=== PATIENT | male | born 1950 | race Caucasian/White ===

== ENCOUNTER 2018-09-24 13:55 | Inpatient (IN) ==
[2018-09-24] MEDS ORDERED: Sod Chloride 0.9% Inj 1,000 ML IV.SIG ONE (14:29)
--- NOTE | 2018-09-24 14:43 | ED ---
HPI General Chief Complaint: Psychiatric Symptoms Stated Complaint: Psych Eval Time Seen by Provider: 09/24/18 14:15 Source: patient Mode of arrival: other (GANGA) Limitations: no limitations History of Present Illness HPI Narrative: 68-year-old male presents the ED under Jaffe act for psychiatric evaluation. According to the Jaffe act the patient told the GANGA that he was "FUBAR" and just did not want to be here anymore. On presentation the patient endorses feeling hopeless and suicidal. He denies a specific plan. He endorses multiple stressors including the recent inability to procure his normal pain medication of Sartell. He states that he is currently living in a motel. He denies any somatic complaints. He is a lifelong smoker since early teen years. He endorses recently beginning to drink alcohol "to help with my pain." He states that prior to this he had been sober for 5 years. Related Data Home Medications Medication Instructions Recorded Confirmed No Known Home Medications 09/24/18 09/24/18 Allergies Allergy/AdvReac Type Severity Reaction Status Date / Time No Known Allergies Allergy Unverified 09/24/18 14:17 Review of Systems ROS: all other systems reviewed are negative PMFSH Social History Social History Substance History: Active Abuse Second Hand Smoke Exposure: Yes Smoking Status: Current every day smoker Tobacco Type: Cigarettes How Often Do You Have a Drink Containing Alcohol: 4 or more times a week Recent Travel in [facility] within the Last 8 Weeks: No Recent Out of Country Travel within the Last 8 Weeks: No Substance Abuse Detail Alcohol: Substance Use Status: Active Route Used Substance Abuse: By Mouth Substance Frequency: heavy weekly use Immunization History Tetanus Immunization: Unsure Exam Narrative Exam Narrative: GENERAL: Well-nourished, well-developed white male in no acute distress. SKIN: Focused skin assessment warm/dry. HEAD: Atraumatic. Normocephalic. EYES: Pupils equal and round. No scleral icterus. No injection or drainage. ENT: No nasal bleeding or discharge. Mucous membranes pink and dry. NECK: Trachea midline. No JVD. CARDIOVASCULAR: Regular rate and rhythm. No murmur appreciated. RESPIRATORY: No accessory muscle use. Clear to auscultation. Breath sounds equal bilaterally. GASTROINTESTINAL: Abdomen soft, non-tender, nondistended. Hepatic and splenic margins not palpable. MUSCULOSKELETAL: No obvious deformities. No clubbing. No cyanosis. No edema. NEUROLOGICAL: Awake and alert. No obvious cranial nerve deficits. Motor grossly within normal limits. Normal speech. PSYCHIATRIC: Tearful, anxious, combative at times. Course Initial Documented Vital Signs Temperature 98.5 F 09/24/18 13:58 Pulse Rate 107 H 09/24/18 13:58 Respiratory Rate 20 09/24/18 13:58 Blood Pressure 137/81 09/24/18 13:58 Pulse Oximetry 98 09/24/18 13:58 Last Documented Vital Signs Temperature 98.5 F 09/24/18 13:58 Pulse Rate 92 H 09/24/18 16:34 Respiratory Rate 14 09/24/18 16:34 Blood Pressure 100/70 09/24/18 16:34 Pulse Oximetry 99 09/24/18 16:34 Medical Decision Making MDM Narrative Medical decision making narrative: 68-year-old male presents to the ED under Jaffe act for psychiatric evaluation. The patient made some suicidal statements to his brother. He acknowledges making the statements but denies suicidal ideation. The vitals are reviewed. Physical exam is unremarkable. Patient was administered IV Ativan. On recheck the patient has been attempting to leave the room, removing the medical equipment. He was administered an additional 1 mg of Ativan and 5 mg Haldol. On recheck the patient is sleeping. CBC and CMP without acute findings. EKG without acute findings. Troponin negative x1. Alcohol level 355. The patient was placed on Sewall protocol. He is medically cleared and awaiting psychiatric evaluation. Medical Screen Exam Complete: Yes Emergency Medical Condition: Yes Differential Diagnosis Differential Diagnosis: Adjustment disorder versus anxiety versus bipolar versus depression versus dementia versus mood disorder versus PTSD versus schizophrenia versus schizoaffective disorder versus substance-induced mood disorder versus other Lab Data Result diagrams: 09/24/18 14:37 09/24/18 14:37 Lab Results 09/24/18 09/24/18 09/24/18 Range/Units 14:37 14:37 14:37 WBC 5.9 (4.0-11.0) th/mm3 RBC 5.46 (4.50-5.90) mil/mm3 Hgb 18.3 H (13.0-17.0) gm/dL Hct 51.9 H (39.0-51.0) % MCV 95.1 (80.0-100.0) fL MCH 33.6 (27.0-34.0) pg MCHC 35.3 (32.0-36.0) % RDW 16.7 (11.6-17.2) % Plt Count 250 (150-450) th/mm3 MPV 7.6 (7.0-11.0) fL Neut % (Auto) 47.7 (16.0-70.0) % Lymph % (Auto) 40.1 (9.0-44.0) % [place] % (Auto) 9.4 H (0.0-8.0) % Eos % (Auto) 1.0 (0.0-4.0) % Baso % (Auto) 1.8 (0.0-2.0) % Neut # (Auto) 2.8 (1.8-7.7) th/mm3 Lymph # (Auto) 2.4 (1.0-4.8) th/mm3 [place] # (Auto) 0.6 (0.0-0.9) th/mm3 Eos # (Auto) 0.1 (0.0-0.4) th/mm3 Baso # (Auto) 0.1 (0.0-0.2) th/mm3 WBC Differential . Differential Comment Auto diff final Sodium 144 (136-145) meq/L Potassium 5.2 H (3.5-5.1) meq/L Chloride 110 H (98-107) meq/L Carbon Dioxide 28.9 (21.0-32.0) meq/L Anion Gap 5 (5-15) meq/L BUN 9 (7-18) mg/dL Creatinine 1.29 (0.60-1.30) mg/dL Estimated GFR 55 L (>89) mL/min Random Glucose 92 (74-106) mg/dL Calcium 7.9 L (8.5-10.1) mg/dL Magnesium 2.4 (1.5-2.5) mg/dL Total Bilirubin 0.9 (0.2-1.0) mg/dL AST 57 H (15-37) U/L ALT 50 (12-78) U/L Alkaline Phosphatase 107 (45-117) U/L Troponin I Less than 0.02 L (0.02-0.05) ng/mL Total Protein 7.0 (6.4-8.2) g/dL Albumin 3.7 (3.4-5.0) g/dL TSH 0.508 (0.358-3.740) uIU/mL Serum Alcohol 355 H (0-5) mg/dL Imaging Data Radiologist's impression: Chest X-Ray 09/24/18 15:21 CONCLUSION: No acute intrathoracic disease. ECG Data EKG Prior to Arrival: No Attestation: I personally reviewed and interpreted this ECG as follows: Interpretation: Rate 94, sinus rhythm. VA interval 149, QRS 90, QTc 417 ms. Normal axis. No acute ST changes. Reviewed by Dr. Rivers. Discharge Plan Discharge Disposition Patient Disposition: Sign Out(ED Internal Use Only) Physicians Team ED Provider: Joy Rivers ED Midlevel Provider: Lisa Malhotra Primary Care Provider: UNKNOWN, Rxs /Orders / Referrals /Forms Prescriptions: No Action No Known Home Medications RF: 0 Discharge Interventions Interventions: Vital Signs Last Done: 09/24/18 16:34 Status ED Status: Medically Cleared
[2018-09-24 15:02] LABS: Baso # (Auto) 0.1 th/mm3 (0.0-0.2); Baso % (Auto) 1.8 % (0.0-2.0); Eos # (Auto) 0.1 th/mm3 (0.0-0.4); Hematocrit 51.9 % (39.0-51.0); Hemoglobin 18.3 gm/dL (13.0-17.0); Lymph # (Auto) 2.4 th/mm3 (1.0-4.8); Lymph % (Auto) 40.1 % (9.0-44.0); Mean Corpuscular HGB Conc 35.3 % (32.0-36.0); Mean Corpuscular Hemoglobin 33.6 pg (27.0-34.0); Mean Corpuscular Volume 95.1 fL (80.0-100.0); Mean Platelet Volume 7.6 fL (7.0-11.0); Mono # (Auto) 0.6 th/mm3 (0.0-0.9); Mono % (Auto) 9.4 % (0.0-8.0); Neut # (Auto) 2.8 th/mm3 (1.8-7.7); Neut % (Auto) 47.7 % (16.0-70.0); Platelet Count 250 th/mm3 (150-450); Red Blood Count 5.46 mil/mm3 (4.50-5.90); Red Cell Distribution Width 16.7 % (11.6-17.2); White Blood Count 5.9 th/mm3 (4.0-11.0)
[2018-09-24] MEDS ORDERED: Haloperidol Inj 5 MG/ML Ampul IV.PUSH ONE (15:21)
[2018-09-24 15:46] LABS: Alanine Aminotransferase 50 U/L (12-78); Albumin 3.7 g/dL (3.4-5.0); Alkaline Phosphatase 107 U/L (45-117); Anion Gap 5 meq/L (5-15); Aspartate Aminotransferase 57 U/L (15-37); Blood Urea Nitrogen 9 mg/dL (7-18); Calcium 7.9 mg/dL (8.5-10.1); Carbon Dioxide 28.9 meq/L (21.0-32.0); Chloride 110 meq/L (98-107); Glomerular Filtration Rate 55 mL/min (>89); Glucose,Random 92 mg/dL (74-106); Magnesium 2.4 mg/dL (1.5-2.5); Potassium 5.2 meq/L (3.5-5.1); Sodium 144 meq/L (136-145); Thyroid Stimulating Hormone 0.508 uIU/mL (0.358-3.740)
[2018-09-24 15:53] LABS: Alcohol 355 mg/dL (0-5)
--- NOTE | 2018-09-24 16:19 | XR ---
EXAM DATE: 09/24/2018 4:16 PM EST AGE/SEX: 68 years / Male INDICATIONS: Shortness of breath. CLINICAL DATA: This is the patient's initial encounter. Patient reports that signs and symptoms have been present for 1 day and indicates a pain score of Nonresponsive. MEDICAL/SURGICAL HISTORY: Non-responsive. Non-responsive. COMPARISON: No prior exams available for comparison. FINDINGS: A single AP view of the chest demonstrates the lungs to be symmetrically aerated without evidence of mass, infiltrate or effusion. The cardiomediastinal contours are unremarkable. Osseous structures a re intact. There are some old healed bilateral rib fractures. CONCLUSION: No acute intrathoracic disease. Electronically signed by: Stevenson Matute MD Board Certified Radiologist 09/24/2018 4:18 PM EST
[2018-09-24] MEDS ORDERED: Haloperidol Inj 5 MG/ML Ampul IV.PUSH PRN (17:13)
[2018-09-25] MEDS: LORazepam 1 MG Tablet PO PRN ×4 (04:02→21:32)
[2018-09-25] MEDS ORDERED: Naproxen 500 MG Tablet PO ONE (07:39)
[2018-09-25 08:42] LABS: Amphetamine Screen,Urine Neg (Neg); Barbiturate Screen,Urine Neg (Neg); Cannabinoid Screen,Urine Neg (Neg); Cocaine Screen,Urine Neg (Neg)
[2018-09-25 08:48] LABS: Opiate Screen,Urine Neg (Neg)
[2018-09-25] MEDS ORDERED: Aluminum/Magnesium/Simethacone Susp 30 ML UDC PO PRN (09:37)
--- NOTE | 2018-09-25 10:05 | ED ---
HPI - Psych - General Source: patient Mode of arrival: other (GANGA) Limitations: no limitations - History of Present Illness MD complaint: feels depressed Onset (ago): week(s) Duration: constant History of same: No Relieving factors: none Exacerbating factors: alcohol Context: recent alcohol abuse Associated psychiatric symptoms: depression Associated symptoms: denies other symptoms Treatments prior to arrival: none If self harm: admits thoughts of self harm (while intoxicated, currently denying ) - General Chief Complaint: Psychiatric Symptoms Stated Complaint: Psych Eval Time Seen by Provider: 09/24/18 14:15 - History of Present Illness HPI Narrative: This is a 68-year-old single, male who presents to this facility under a police-initiated Jaffe Act for making suicidal statements. Patient is not previously known to this facility. Reviewed electronic medical record, labs, and discussed case with staff. Blood alcohol level was .355 upon his arrival. He is evaluated in his room in [facility]. Found awake, alert and oriented X 4. His speech is clear, logical, organized, of normal noemi and volume. He is currently denying SI and HI. When asked if he is experiencing AVH he states, "not really". There is no indication of psychosis or sid. I can elicit no delusional material. The patient does admit to feeling depressed and his affect is sad. He reports that he recently had a friend that . Patient states that he has chronic pain from past injuries and was prescribed pain medication however, "due to the law they stopped prescribing me them, so I started drinking again". He reports that he has been drinking daily for three weeks, approximately 12 "high octane beers per day". 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 He admits to owning firearms. Denies any previous suicide attempts. Denies familial history. Denies previous seizures during w/d. He smokes approximately one PPD of cigarettes and denies using illicit drugs. He does not desire detox at this time. He reports that he went to one "for about a minute, I decided it wasn't for me". (Ryanne Smith) - Related Data Home Medications Medication Instructions Recorded Confirmed No Known Home Medications 12/13/18 12/13/18 Allergies Allergy/AdvReac Type Severity Reaction Status Date / Time No Known Allergies Allergy Unverified 09/24/18 14:17 Review of Systems Respiratory: Reports other (COPD tachypneic had to recieve a breathing treatment ) PMFSH - History History Provided By: Patient - Tobacco History Second Hand Smoke Exposure: Yes Tobacco Use In Past 30 Days: Yes Smoking Status: Current every day smoker Tobacco Type: Cigarettes - Alcohol History How Often Do You Have a Drink Containing Alcohol: 4 or more times a week - Substance Use History Substance History: Active Abuse - Substance Use Type Alcohol Status: Active Route Used: By Mouth Frequency: heavy weekly use - Travel History Recent Travel in the [place] Within the Last 8 Weeks: No Recent Travel Out of the Country Within the Last 8 Weeks: No - Immunization History Tetanus Immunization: Unsure Psychiatric History - Psychiatric History Psychiatric Treatment History: Denies Previous Treatment History of Inpatient Treatment: No Firearms in Home: Yes - Family Psychiatric History Denies (Ryanne Smith) Physical Exam - General Limitations: no limitations General appearance: alert - Head Head exam: atraumatic, normocephalic - Psychiatric Psychiatric exam: Present: depressed Mental Status Examination Appearance: Disheveled Consciousness: Alert Orientation: x4 Motor Activity: Other (lying on bed) Speech: Unremarkable Language: Adequate Fund of Knowledge: Adequate Attention and Concentration: Adequate Memory: Unremarkable Mood: Sad Affect: Sad Thought Process & Associations: Intact Thought Content: Appropriate Hallucination Type: None Delusion Type: None Suicidal Ideation: No Suicidal Plan: No Suicidal Intention: No Homicidal Ideation: No Homicidal Plan: No Homicidal Intention: No Insight: Fair Judgment: Impulsive Initial Documented Vital Signs Temperature 98.5 F 09/24/18 13:58 Pulse Rate 107 H 09/24/18 13:58 Respiratory Rate 20 09/24/18 13:58 Blood Pressure 137/81 09/24/18 13:58 Pulse Oximetry 98 09/24/18 13:58 Last Documented Vital Signs Temperature 98.3 F 09/25/18 06:09 Pulse Rate 66 09/25/18 07:38 Respiratory Rate 22 09/25/18 07:38 Blood Pressure 169/103 H 09/25/18 07:26 Pulse Oximetry 96 09/25/18 07:25 MDM - Psych - Diagnosis (1) Major depressive disorder Code(s): F32.9 - Major depressive disorder, single episode, unspecified Status : Acute - Lab Data Result diagrams: 09/24/18 14:37 09/24/18 14:37 - MDM Narrative Medical decision making narrative: Given that the patient has had a recent loss of a good friend, endorses being depressed, and reported feeling suicidal while intoxicated, he will be admitted to a locked psychiatric unit for further evaluation and treatment as deemed necessary. (Ryanne Smith) - Lab Data Lab Results 09/24/18 09/24/18 09/24/18 Range/Units 14:37 14:37 14:37 WBC 5.9 (4.0-11.0) th/mm3 RBC 5.46 (4.50-5.90) mil/mm3 Hgb 18.3 H (13.0-17.0) gm/dL Hct 51.9 H (39.0-51.0) % MCV 95.1 (80.0-100.0) fL MCH 33.6 (27.0-34.0) pg MCHC 35.3 (32.0-36.0) % RDW 16.7 (11.6-17.2) % Plt Count 250 (150-450) th/mm3 MPV 7.6 (7.0-11.0) fL Neut % (Auto) 47.7 (16.0-70.0) % Lymph % (Auto) 40.1 (9.0-44.0) % [place] % (Auto) 9.4 H (0.0-8.0) % Eos % (Auto) 1.0 (0.0-4.0) % Baso % (Auto) 1.8 (0.0-2.0) % Neut # (Auto) 2.8 (1.8-7.7) th/mm3 Lymph # (Auto) 2.4 (1.0-4.8) th/mm3 [place] # (Auto) 0.6 (0.0-0.9) th/mm3 Eos # (Auto) 0.1 (0.0-0.4) th/mm3 Baso # (Auto) 0.1 (0.0-0.2) th/mm3 WBC Differential . Differential Comment Auto diff final Sodium 144 (136-145) meq/L Potassium 5.2 H (3.5-5.1) meq/L Chloride 110 H (98-107) meq/L Carbon Dioxide 28.9 (21.0-32.0) meq/L Anion Gap 5 (5-15) meq/L BUN 9 (7-18) mg/dL Creatinine 1.29 (0.60-1.30) mg/dL Estimated GFR 55 L (>89) mL/min Random Glucose 92 (74-106) mg/dL Calcium 7.9 L (8.5-10.1) mg/dL Magnesium 2.4 (1.5-2.5) mg/dL Total Bilirubin 0.9 (0.2-1.0) mg/dL AST 57 H (15-37) U/L ALT 50 (12-78) U/L Alkaline Phosphatase 107 (45-117) U/L Troponin I Less than 0.02 L (0.02-0.05) ng/mL Total Protein 7.0 (6.4-8.2) g/dL Albumin 3.7 (3.4-5.0) g/dL TSH 0.508 (0.358-3.740) uIU/mL Urine Opiates Screen (Neg) Ur Barbiturates Screen (Neg) Ur Amphetamines Screen (Neg) U Benzodiazepines Scrn (Neg) Urine Cocaine Screen (Neg) U Cannabinoids Screen (Neg) Serum Alcohol 355 H (0-5) mg/dL 09/25/18 Range/Units 08:10 WBC (4.0-11.0) th/mm3 RBC (4.50-5.90) mil/mm3 Hgb (13.0-17.0) gm/dL Hct (39.0-51.0) % MCV (80.0-100.0) fL MCH (27.0-34.0) pg MCHC (32.0-36.0) % RDW (11.6-17.2) % Plt Count (150-450) th/mm3 MPV (7.0-11.0) fL Neut % (Auto) (16.0-70.0) % Lymph % (Auto) (9.0-44.0) % [place] % (Auto) (0.0-8.0) % Eos % (Auto) (0.0-4.0) % Baso % (Auto) (0.0-2.0) % Neut # (Auto) (1.8-7.7) th/mm3 Lymph # (Auto) (1.0-4.8) th/mm3 [place] # (Auto) (0.0-0.9) th/mm3 Eos # (Auto) (0.0-0.4) th/mm3 Baso # (Auto) (0.0-0.2) th/mm3 WBC Differential Differential Comment Sodium (136-145) meq/L Potassium (3.5-5.1) meq/L Chloride (98-107) meq/L Carbon Dioxide (21.0-32.0) meq/L Anion Gap (5-15) meq/L BUN (7-18) mg/dL Creatinine (0.60-1.30) mg/dL Estimated GFR (>89) mL/min Random Glucose (74-106) mg/dL Calcium (8.5-10.1) mg/dL Magnesium (1.5-2.5) mg/dL Total Bilirubin (0.2-1.0) mg/dL AST (15-37) U/L ALT (12-78) U/L Alkaline Phosphatase (45-117) U/L Troponin I (0.02-0.05) ng/mL Total Protein (6.4-8.2) g/dL Albumin (3.4-5.0) g/dL TSH (0.358-3.740) uIU/mL Urine Opiates Screen Neg (Neg) Ur Barbiturates Screen Neg (Neg) Ur Amphetamines Screen Neg (Neg) U Benzodiazepines Scrn Neg (Neg) Urine Cocaine Screen Neg (Neg) U Cannabinoids Screen Neg (Neg) Serum Alcohol (0-5) mg/dL
--- NOTE | 2018-09-25 10:52 | ECG ---
Date Performed: 09/24/2018 Time Performed: 16:31:40 PTAGE: 68 years EKG: Sinus rhythm WITH SINUS ARRHYTHMIA POSSIBLE RIGHT VENTRICULAR CONDUCTION DELAY BORDERLINE ECG NO PREVIOUS TRACING DOCTOR: Khoa Jones Interpretating Date/Time 09/25/2018 10:50:58
[2018-09-25] MEDS: Umeclindinium 62.5 MCG/Vilanterol 25 MCG Inhaler INH SCH (11:17)
--- NOTE | 2018-09-25 13:46 | P.DIET ---
Nutritional Evaluation Type of nutrition evaluation: initial Nutrition consult regarding: Diet Evaluation Nutrition screening: [facility] ([facility] consult for weight loss) Objective - Diagnosis depression - Indications of Malnutrition Characteristics: Weight loss - Objective Body Mass Index: 19.9 [place] body weight: 73 kg % IBW: 84 Body Weight Used for Calculations: IBW, Actual Energy Needs - Lower Range (kCal/kg): 30 Energy Needs - Upper Range (kCal/kg): 35 Lower Limit kCal/kg (kCals): 1,830 Upper Limit kCal/kg (kCals): 2,135 Lower Limit Protein Factor (Grams per Kg): 1 Upper Limit Protein Factor (Grams per Kg): 1.2 Lower Protein Needs (Protein): 61 Upper Protein Needs (Protein): 73 Fluid Factor (ml/kg): 30 Estimated Fluid Needs (ml): 1,830 Dietitian Reviewed in Medical Record: Current diet, Curent medications, Labs, Medical history Diet Order: Regular Objective Comments: PMH; psychiatric symptoms Labs; nutritionally unremarkable Medications; reviewed Assessment Assessment: [facility] consult for weight loss. Pt is at nutritional risk 2/2 recent weight loss, ETOH use and depression. Will recommend Ensure nutritional supplement BID to provide an additional 250kcal and 9g protein in efforts to minimize further weight loss. Additionally, would recommend to consider MVI 2/2 ETOH use. Will continue to monitor PO intake and acceptance/tolerance to supplements. Recommendations: 1. Ensure supplement BID 2. Consider MVI 3. Monitor PO intake and tolerance to supplements 4. Monitor weight Dietitian to Monitor: Lab values, Supplement acceptance, PO Intake
--- NOTE | 2018-09-25 14:18 | P.HPPSY ---
Provisional Diagnosis Admission Date: September 25, 2018 09:22 [place] I.: Major depressive disorder single episode severe without psychotic features Alcohol use disorder severe [place] III.: Chronic pain COPD Competence Certification of Person's Competence To Provide Express and Informed Consent I have personally examined Sathya Fonseca, a person being served at [facility] on, September 25, 2018 1400. Express and informed consent means consent voluntarily given in writing, by a competent person, after sufficient explanation and disclosure of the subject matter involved to enable the person to make a knowing and willful decision without any element of force, fraud, deceit, duress, or other form of constraint or coercion. This person is 18 years of age or older, is not now known to be incompetent to consent to treatment with a guardian advocate, and does not have a health care surrogate or proxy currently making medical treatment decisions. I have found this person to be one of the following: [] Competent to provide express and informed consent, as defined above, for voluntary admission to this facility and is competent to provide express and informed consent for treatment. He/she has the consistent capacity to make well reasoned, willful, and knowing decisions concerning his or her medical or mental health treatment. The person fully and consistently understands the purpose of the admission for examination/placement and is fully capable of personally exercising all rights assured [place] [] Incompetent to provide express and informed consent to voluntary admission, and this is incompetent to provide express and informed consent to treatment. The person must be transferred to involuntary status and a petition for a guardian advocate filed with the Circuit Court. [xxx] Refusing to provide express and informed consent to voluntary admission but is competent to provide express and informed consent for treatment. The person must be discharged or transferred to involuntary status. Form shall be completed within 24 hours of a person's arrival at the receiving facility and filed in the clinical record of each person: 1. Admitted on a voluntary basis 2. Permitted to provide express and informed consent to his/her own treatment 3. Allowed to transfer from involuntary to voluntary status 4. Prior to permitting a person to consent to his or her own treatment after having been previously found incompetent to consent to treatment. History of Present Illness Capacity: Has capacity Chief Complaint: Depression with suicidal threats History of Present Illness: The patient is a 68-year-old male who is brought to the emergency room under law enforcement officers Jaffe act order. According to the Jaffe act report, the patient told the business lawyer that he was "FUBAR" and did not want to be here anymore. On presentation to the emergency room, the patient admits to being hopeless and ambivalent about living but denies a plan to end his life. He endorsed multiple stressors including chronic pain without satisfactory treatment since he lost access to his [employer] approximately 3-4 months ago. Additionally, the patient reports grief and loss from losing a friend to stomach cancer 2 months ago. He admits to worsening depressed mood over the last 2 months but on the day of admission he reports "I was talking crazy and my brother took it the wrong way I do not want to ...the thought really scares me." As for his depression, the patient denies consistently depressed mood for more than 2 weeks prior to 2 months ago but since his friend 2 months ago he has been feeling down and depressed daily. He also admits to "fitful sleep", decreased interest, increased feelings of hopelessness, decreased energy, decreased concentration, and decreased appetite. He denies having thoughts of suicide previous to the day of admission. As for anxiety symptoms, the patient denies any history of chronic worries or anxiety attacks. As for psychosis, the patient denies any history of auditory or visual hallucinations. He denies any history of paranoid delusions. Past psychiatric history: Past Diagnoses: None reported Hospitalizations: Patient admits to being Jaffe acted 10 years ago reportedly for answering yes on a suicide screener. He reports being discharged the next day. Suicidal behavior: He denies Past psychotropic medication trials: Denies Outpatient treatment: Denies Substance Use Treatment: Denies Abuse/assault history: Denies Family psychiatric history: He denies any history of mental illness or suicides in his family. Psychosocial history: He was born and raised in [place]. He was raised by both parents and had 7 sisters and one brother, he was the fourth child out of 9. The patient graduate high school on time and then moved to [facility] where he attended [facility] [employer] for couple years but then left to work full- time. 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 The patient reports that he was and once but has no children. He is currently living in a travel trailer with friends. He does have access to firearms. As for his legal history, he admits to being arrested as a teen for racing cars and then his early 19 for marijuana possession but no history of correction time. Substance Use history: Tobacco use: One pack per day for 50 years Alcohol use: He reports maintaining 5 years of sobriety prior to 3-4 weeks ago when he reportedly relapsed on alcohol use in an effort to treat his pain. He admits to drinking 12 beers per day leading up to his admission. 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 Cannabis use: None since his early 20s Stimulant use: He denies Opiate use: The patient denies misuse of prescription or illicit opiate drugs. Prescription drug abuse: Patient denies. - Inpatient Certification I certify that the inpatient services were ordered in accordance with Medicare regulations governing the order. This includes certification that hospital inpatient services are reasonable and necessary and in the case of services not specified as inpatient-only under 42 CFR 419.22(n), that they are appropriately provided as inpatient services in accordance to with the 2-midnight benchmark under 43 CFR 412.3(e) I certify that inpatient psychiatric hospital services are medically necessary. Evaluation and treatment and/or diagnostic testing are expected to improve the patient's condition. The patient needs on a daily basis, active treatment furnished directly by or requiring the supervision of inpatient psychiatric facility personnel. Estimated Total Length of Stay (Days): 5 Plans for Post Hospital Care: Home Review of Systems Constitutional: Reports body ache(s), Reports fatigue, Denies chills, Denies fever(s), Denies headache(s), Denies night sweats, Denies weight loss Eyes: Denies change in vision Ears, Nose, Mouth, and Throat: Denies mouth lesions, Denies nasal congestion Cardiovascular: Denies chest pain, Denies rapid, pounding, or irregular heartbeat Respiratory: Reports chest congestion, Reports shortness of breath with activity Gastrointestinal: Denies abdominal pain Genitourinary: Denies difficulty urinating Musculoskeletal: Reports back pain, Reports joint pain Psychiatric: Reports abnormal sleep pattern, Reports change in appetite, Reports depression, Reports difficulty concentrating, Reports hopelessness, Denies hearing things others do not hear, Denies memory loss, Denies mood swings , Denies panic attacks, Denies paranoia, Denies seeing things others do not see , Denies sensing things others do not sense, Denies tactile hallucinations, Denies thoughts of hurting/killing others, Denies thoughts of hurting/killing yourself PMFSH - History History Provided By: Patient - Tobacco History Second Hand Smoke Exposure: Yes Tobacco Use In Past 30 Days: Yes Smoking Status: Current every day smoker Tobacco Type: Cigarettes - Alcohol History How Often Do You Have a Drink Containing Alcohol: 4 or more times a week - Substance Use History Substance History: Active Abuse, Past History - Substance Use Type Alcohol Status: Active Route Used: By Mouth Frequency: heavy weekly use Reason for Use: Calm Down Comment: PT REPORTS HE STATED DRINKING, "BEACUSE THE GOVERNOR CUT OFF MY PAIN PILLS." - Travel History Recent Travel in the [facility] Within the Last 8 Weeks: No Recent Travel Out of the Country Within the Last 8 Weeks: No - Immunization History Tetanus Immunization: Unsure Hx Influenza Vaccine This Season: No Medications and Allergies Active Medications: Active Medications Al Hydrox/Mg Hydrox/Simethicone (Mag-Al Plus Susp Liq) 30 ml PO Q6H PRN PRN Reason: DYSPEPSIA Al Hydroxide/Mg Hydroxide (Milk Of Magnesia Liq) 30 ml PO Q12H PRN PRN Reason: Mild Constipation Albuterol (Ventolin Hfa Inh) 2 puff INH Q4H PRN PRN Reason: SHORTNESS OF BREATH/WHEEZING Diphenhydramine HCl (Benadryl Inj) 50 mg IM HS PRN PRN Reason: INSOMNIA Duloxetine HCl (Cymbalta) 30 mg PO DAILY JACLYN Gabapentin (Neurontin) 300 mg PO TID JACLYN Haloperidol Lactate (Haldol Inj) 1 mg IV.PUSH Q15M PRN PRN Reason: for severe agitation Hydroxyzine HCl (Atarax) 50 mg PO Q6H PRN PRN Reason: ANXIETY Ibuprofen (Motrin) 600 mg PO Q8HR PRN PRN Reason: PAIN 1-10 AND/OR FEVER >101F Lidocaine HCl (Lidoderm 5% Patch.12 Hr) 1 patch T-DERMAL DAILY JACLYN Lorazepam (Ativan Inj) 1 mg IV.PUSH Q4H PRN PRN Reason: for CIWA 8-10 Lorazepam (Ativan Inj) 2 mg IV.PUSH Q15M PRN PRN Reason: for CIWA > 20 Lorazepam (Ativan Inj) 2 mg IV.PUSH Q1H PRN PRN Reason: for CIWA 15-20 Lorazepam (Ativan Inj) 2 mg IV.PUSH Q2H PRN PRN Reason: for CIWA 11-14 Lorazepam (Ativan) 1 mg PO Q4H PRN PRN Reason: for CIWA 8-10 Last Admin: 09/25/18 11:22 Dose: 1 mg Lorazepam (Ativan) 2 mg PO Q2H PRN PRN Reason: for CIWA 11-14 Last Admin: 09/24/18 21:37 Dose: 2 mg Patch Removal (Remove Old Patch) 1 each T-DERMAL HS JACLYN Trazodone HCl (Desyrel) 50 mg PO HS PRN PRN Reason: INSOMNIA Umeclidinium/Vilanterol (Anoro-Ellipta 62.5/25 Mcg Inh) 1 inhalation INH DAILY JACLYN Last Admin: 09/25/18 11:17 Dose: 1 inhalation Allergies Allergy/AdvReac Type Severity Reaction Status Date / Time No Known Allergies Allergy Unverified 09/24/18 14:17 Home Medications Medication Instructions Recorded Confirmed Type No Known Home Medications 09/24/18 09/24/18 History Results - Labs CBC & Chem 7: 09/24/18 14:37 09/24/18 14:37 Labs: Laboratory Results - last 24 hr 09/24/18 09/24/18 09/24/18 14:37 14:37 14:37 WBC 5.9 RBC 5.46 Hgb 18.3 H Hct 51.9 H MCV 95.1 MCH 33.6 MCHC 35.3 RDW 16.7 Plt Count 250 MPV 7.6 Neut % (Auto) 47.7 Lymph % (Auto) 40.1 [place] % (Auto) 9.4 H Eos % (Auto) 1.0 Baso % (Auto) 1.8 Neut # (Auto) 2.8 Lymph # (Auto) 2.4 [place] # (Auto) 0.6 Eos # (Auto) 0.1 Baso # (Auto) 0.1 WBC Differential . Differential Comment Auto diff final Sodium 144 Potassium 5.2 H Chloride 110 H Carbon Dioxide 28.9 Anion Gap 5 BUN 9 Creatinine 1.29 Estimated GFR 55 L Random Glucose 92 Calcium 7.9 L Magnesium 2.4 Total Bilirubin 0.9 AST 57 H ALT 50 Alkaline Phosphatase 107 Troponin I Less than 0.02 L Total Protein 7.0 Albumin 3.7 TSH 0.508 Urine Opiates Screen Ur Barbiturates Screen Ur Amphetamines Screen U Benzodiazepines Scrn Urine Cocaine Screen U Cannabinoids Screen Serum Alcohol 355 H 09/25/18 08:10 WBC RBC Hgb Hct MCV MCH MCHC RDW Plt Count MPV Neut % (Auto) Lymph % (Auto) [place] % (Auto) Eos % (Auto) Baso % (Auto) Neut # (Auto) Lymph # (Auto) [place] # (Auto) Eos # (Auto) Baso # (Auto) WBC Differential Differential Comment Sodium Potassium Chloride Carbon Dioxide Anion Gap BUN Creatinine Estimated GFR Random Glucose Calcium Magnesium Total Bilirubin AST ALT Alkaline Phosphatase Troponin I Total Protein Albumin TSH Urine Opiates Screen Neg Ur Barbiturates Screen Neg Ur Amphetamines Screen Neg U Benzodiazepines Scrn Neg Urine Cocaine Screen Neg U Cannabinoids Screen Neg Serum Alcohol - Imaging Impressions Chest X-Ray 09/24/18 15:21 CONCLUSION: No acute intrathoracic disease. Exam Vital signs: Vital Signs 09/24/18 15:04 09/24/18 16:34 09/24/18 19:00 Temperature Pulse Rate 100 H 92 H 90 Respiratory Rate 14 14 18 Blood Pressure 136/88 100/70 Pulse Oximetry 94 L 99 98 09/24/18 20:00 09/24/18 21:33 09/24/18 22:00 Temperature Pulse Rate 90 112 H 90 Respiratory Rate 18 22 18 Blood Pressure 129/81 Pulse Oximetry 98 93 L 95 09/24/18 22:15 09/24/18 22:44 09/25/18 01:08 Temperature Pulse Rate 102 H 66 Respiratory Rate 16 15 Blood Pressure 158/99 H Pulse Oximetry 92 L 94 L 96 09/25/18 06:09 09/25/18 07:25 09/25/18 07:26 Temperature 98.3 F Pulse Rate 78 74 Respiratory Rate 26 H 26 H Blood Pressure 158/94 H 165/97 H 169/103 H Pulse Oximetry 97 96 09/25/18 07:38 09/25/18 11:18 09/25/18 12:55 Temperature 97.4 F L Pulse Rate 66 81 86 Respiratory Rate 22 18 Blood Pressure 164/98 H 178/100 H Pulse Oximetry 97 Intake & Output 09/24/18 09/25/18 09/25/18 18:59 06:59 18:59 Intake Total 1000 / 1000 Output Total 180 / 180 Balance 1000 / 1000 -180 / -180 Weight 61.235 kg 61.235 kg Intake: IV 1000 / 1000 Output: Urine 180 / 180 Other: Weight On Admission 61.235 kg Mental Status Examination Appearance: Disheveled Consciousness: Alert Orientation: x4 Motor Activity: Other (lying on bed) Speech: Unremarkable Language: Adequate Fund of Knowledge: Adequate Attention and Concentration: Adequate Memory: Unremarkable Mood: Sad, Irritable Affect: Irritable, Sad Thought Process & Associations: Intact Thought Content: Appropriate Hallucination Type: None Delusion Type: None Suicidal Ideation: No Suicidal Plan: No Suicidal Intention: No Homicidal Ideation: No Homicidal Plan: No Homicidal Intention: No Insight: Poor Judgment: Poor Assessment and Plan - Assessment (1) Major depressive disorder Code(s): F32.9 - Major depressive disorder, single episode, unspecified Status : Acute (2) Alcohol dependency Code(s): F10.20 - Alcohol dependence, uncomplicated Status: Acute (3) Chronic pain Code(s): G89.29 - Other chronic pain Status: Acute - Plan Plan: Estimated LOS: 5 days 1. Continue with admission to inpatient psychiatry at [facility]; involuntary/competent legal status. First opinion completed. 2. Routine unit precautions. 3. Comfort medications ordered for as needed treatment of constipation, heartburn, diarrhea, and mild pain. 4. Hydroxyzine 50mg po q6H prn anxiety/insomnia. 5. Alcohol withdrawal protocol with Ativan 1-2 mg as needed based on CIWA 6. Start Cymbalta 30 mg daily for treatment of depression and chronic pain. 7. Start gabapentin 300 mg 3 times a day for treatment of alcohol withdrawal as well as chronic pain. 8. Start Lidoderm patch apply 1 patch for 12 hours once per day for treatment of chronic back pain. 9. Patient will participate in the unit programming to include group therapies , milieu therapy and recreational therapies. 10. Discharge planning: Patient will require consideration of referrals for substance use treatment to include medications as well as recovery programs. Justification for Continued Inpatient Stay: Patient is a 68-year-old male with history of alcohol dependence who was admitted to psychiatry under a law enforcement order a Jaffe act after he threatened suicide with his brother. Patient admits to worsening depressed mood over the last few months in association with severe psychosocial stressors as well as chronic pain and a relapse of his alcohol dependency. The patient admits to being in active withdrawal from alcohol as was observed from his significant tremulousness but he remains apprehensive about psychiatric treatment and is now denying any suicidality. The patient is unreliable in his current mental state therefore he will be continued on involuntary admission Jaffe act orders for further observation and treatment. The patient did demonstrate adequate capacity for making informed consent's for medical treatment and after discussion of risks benefits side effects and alternatives he expressed a desire to be started on treatments for depression as well as non- opioid treatments for pain. Patient remains an elevated risk for self-harm and will require further inpatient stabilization and preparation of a safe discharge plan. Moving patient to a less restrictive environment at this time may result in decompensation. Request Healthcare Surrogate/Guardian Advocate?: No (1) Major depressive disorder Qualifiers: Major depression recurrence: single episode Major depression episode severity : severe Psychotic features: without psychotic features (3) Chronic pain Qualifiers: Chronic pain type: other chronic pain Qualified Code(s): G89.29 - Other chronic pain
[2018-09-25] MEDS: Ibuprofen 600 MG Tablet PO PRN (14:30)
[2018-09-25] MEDS: Lidocaine 5% Patch T-DERMAL SCH (14:31)
[2018-09-25] MEDS: Gabapentin 300 MG Capsule PO SCH (17:50)
[2018-09-25] MEDS: traZODone 50 MG Tablet PO PRN (20:22)
[2018-09-26] MEDS: Ibuprofen 600 MG Tablet PO PRN ×2 (07:30→17:19)
[2018-09-26] MEDS: Gabapentin 300 MG Capsule PO SCH ×3 (08:19→17:19)
[2018-09-26] MEDS: Umeclindinium 62.5 MCG/Vilanterol 25 MCG Inhaler INH SCH (08:34)
[2018-09-26] MEDS: Lidocaine 5% Patch T-DERMAL SCH (08:35)
[2018-09-26 11:42] LABS: Calcium 8.8 mg/dL (8.5-10.1); Potassium 4.1 meq/L (3.5-5.1)
[2018-09-26 11:46] LABS: Chol/HDL Ratio 1.63 Ratio; HDL Cholesterol 119.3 mg/dL (40.0-60.0)
--- NOTE | 2018-09-26 12:57 | P.PNPSY ---
Subjective Chief Complaint: Depression with suicidal threats Remarks: This is a request for second opinion. Admission note was reviewed and I agree with the history. Patient was seen and case was discussed with nursing. Patient is initially oppositional and dismissive during the interview when he finds out he will be leaving today but gradually becomes cooperative. He says he has been depressed recently but denies feeling hopeless and is evasive concerning his suicidal statements. He is angry at his brother for "putting his nose where he does not belong." Patient is minimizing his alcohol use. Patient is having signs of alcohol withdrawal and has received 4 mg of Ativan today. Blood pressure is mildly elevated, patient is mildly tremulous and has some mild nausea. There are no auditory or visual hallucinations or change in mental status. At this time, he denies suicidal or homicidal ideation intent or plan. Review of Systems All other systems reviewed negative except as stated in HPI Constitutional: Reports body ache(s) Psychiatric: Reports depression Mental Status Examination Appearance: Disheveled Consciousness: Alert Orientation: x4 Motor Activity: Other (lying on bed) Speech: Unremarkable Language: Adequate Fund of Knowledge: Adequate Attention and Concentration: Adequate Memory: Unremarkable Mood: Sad, Irritable Affect: Irritable, Sad, Blunt Thought Process & Associations: Intact Thought Content: Appropriate Hallucination Type: None Delusion Type: None Suicidal Ideation: No Suicidal Plan: No Suicidal Intention: No Homicidal Ideation: No Homicidal Plan: No Homicidal Intention: No Insight: Poor Judgment: Poor Assessment and Plan - Assessment (1) Major depressive disorder Code(s): F32.9 - Major depressive disorder, single episode, unspecified Status : Acute (2) Alcohol dependency Code(s): F10.20 - Alcohol dependence, uncomplicated Status: Acute (3) Chronic pain Code(s): G89.29 - Other chronic pain Status: Acute - Plan Plan: I agree with the first opinion to continue petition. Criteria include suicidal ideation and alcohol abuse. Justification for Continued Inpatient Stay: Patient would decompensate in a less restrictive setting Request Healthcare Surrogate/Guardian Advocate?: No (1) Major depressive disorder Qualifiers: Major depression recurrence: single episode Major depression episode severity : severe Psychotic features: without psychotic features (3) Chronic pain Qualifiers: Chronic pain type: other chronic pain Qualified Code(s): G89.29 - Other chronic pain
[2018-09-26 14:21] LABS: Hemoglobin A1c 4.9 % (4.3-6.0)
[2018-09-26] MEDS: traZODone 50 MG Tablet PO PRN (20:00)
[2018-09-26] MEDS: LORazepam 1 MG Tablet PO PRN (20:00)
[2018-09-27] MEDS: Lidocaine 5% Patch T-DERMAL SCH (08:46)
[2018-09-27] MEDS: Gabapentin 300 MG Capsule PO SCH ×3 (08:47→17:10)
[2018-09-27] MEDS: Umeclindinium 62.5 MCG/Vilanterol 25 MCG Inhaler INH SCH (08:48)
--- NOTE | 2018-09-27 12:40 | P.PNPSY ---
Subjective Chief Complaint: Depression with suicidal threats Remarks: Patient seen and examined with nurse in weekend coverage for Dr Machado. Chart reviewed. Case discussed with nursing staff. On my examination today, the patient attributes the circumstances of his presentation here to his alcohol use , which in turn he attributes to tapering of his chronic pain management medications and response to recent changes to the law. He believes that his brother overreacted in having him Jaffe acted and expresses a great deal of frustration with his brother. He denies any suicidal or homicidal ideation presently. Denies any side effects from medications. No acute physical complaints. Vital Signs Temp Pulse Resp BP Pulse Ox 09/27/18 07:33 138/94 H 09/27/18 06:07 97.9 F 80 18 142/100 H 96 09/27/18 03:44 61 20 134/88 09/26/18 17:07 98.2 F 88 18 190/107 H 99 Laboratory Results - last 48 hr 09/26/18 09/26/18 10:33 10:53 Sodium 141 Potassium 4.1 D Chloride 104 Carbon Dioxide 32.0 Anion Gap 5 BUN 15 Creatinine 1.05 Estimated GFR 70 L Random Glucose 79 Hemoglobin A1c 4.9 Calcium 8.8 D Triglycerides 123 Cholesterol 195 LDL Cholesterol, Calc 51 HDL Cholesterol 119.3 H Cholesterol/HDL Ratio 1.63 Labs reviewed. Review of Systems All other systems reviewed negative except as stated in HPI Mental Status Examination Appearance: Disheveled Consciousness: Alert Orientation: x4 Motor Activity: Other (No motor abnormalities noted) Speech: Unremarkable Language: Adequate Fund of Knowledge: Adequate Attention and Concentration: Adequate Memory: Unremarkable Mood: Irritable, Other (Somewhat dysphoric) Affect: Irritable, Blunt Thought Process & Associations: Intact Thought Content: Appropriate Hallucination Type: None Delusion Type: None Suicidal Ideation: No Suicidal Plan: No Suicidal Intention: No Homicidal Ideation: No Homicidal Plan: No Homicidal Intention: No Insight: Poor Judgment: Poor Assessment and Plan - Assessment (1) Major depressive disorder Code(s): F32.9 - Major depressive disorder, single episode, unspecified Status : Acute (2) Alcohol dependency Code(s): F10.20 - Alcohol dependence, uncomplicated Status: Acute (3) Chronic pain Code(s): G89.29 - Other chronic pain Status: Acute - Plan Plan: Continue Cymbalta as ordered. Continue to monitor on the inpatient unit. Continue other medications and care as ordered. Justification for Continued Inpatient Stay: Monitoring for impairments in safety. Discharge Planning: Per Dr. Machado. Request Healthcare Surrogate/Guardian Advocate?: No (1) Major depressive disorder Qualifiers: Major depression recurrence: single episode Major depression episode severity : severe Psychotic features: without psychotic features (3) Chronic pain Qualifiers: Chronic pain type: other chronic pain Qualified Code(s): G89.29 - Other chronic pain
[2018-09-27] MEDS: Ibuprofen 600 MG Tablet PO PRN (21:35)
[2018-09-27] MEDS: LORazepam 1 MG Tablet PO PRN (21:35)
[2018-09-27] MEDS: traZODone 50 MG Tablet PO PRN (21:35)
[2018-09-28] MEDS: Umeclindinium 62.5 MCG/Vilanterol 25 MCG Inhaler INH SCH (08:28)
[2018-09-28] MEDS: Lidocaine 5% Patch T-DERMAL SCH (08:28)
[2018-09-28] MEDS: Gabapentin 300 MG Capsule PO SCH ×3 (08:29→17:19)
[2018-09-28] MEDS: Ibuprofen 600 MG Tablet PO PRN ×2 (08:29→17:19)
--- NOTE | 2018-09-28 15:18 | P.PNPSY ---
Subjective Chief Complaint: Depression with suicidal threats Remarks: Patient seen for follow-up, chart reviewed, patient discussed with nursing staff ; we reviewed the patient's mood, thoughts, and behaviors from overnight and this morning. The patient's vital signs have been stable this morning but his blood pressure and heart rate were elevated over the weekend consistent with alcohol withdrawal. There is reports that the patient continues to deny suicidal ideations. Nursing reports that he has been out of his room for snacks and meals and appropriate in the milieu, rates his depressed mood as a 4 out of 10. Patient was observed during recreational group and he was occluded to a corner in the room quiet and to himself. The patient does admit that he has had recurrent symptoms of alcohol withdrawal over the weekend but is feeling much better today. The patient did receive 2 mg of Ativan approximately midnight last night but none thus far today. He denies any GI upset headaches or dizziness since starting Cymbalta and he is willing to increase to more therapeutic dose. The patient remains highly motivated for discharge but was agreeable with plan to continue his alcohol withdrawal treatment and observation for another 24 hours. Review of Systems Psychiatric: Reports depression, Denies hearing things others do not hear, Denies hopelessness, Denies paranoia, Denies seeing things others do not see, Denies thoughts of hurting/killing others, Denies thoughts of hurting/killing yourself Mental Status Examination Appearance: Disheveled Consciousness: Alert Orientation: x4 Motor Activity: Normal gait Speech: Unremarkable Language: Adequate Fund of Knowledge: Adequate Attention and Concentration: Adequate Memory: Unremarkable Mood: Irritable Affect: Irritable, Blunt Thought Process & Associations: Intact Thought Content: Appropriate Hallucination Type: None Delusion Type: None Suicidal Ideation: No Suicidal Plan: No Suicidal Intention: No Homicidal Ideation: No Homicidal Plan: No Homicidal Intention: No Insight: Poor Judgment: Impulsive Assessment and Plan - Assessment (1) Major depressive disorder Code(s): F32.9 - Major depressive disorder, single episode, unspecified Status : Acute (2) Alcohol dependency Code(s): F10.20 - Alcohol dependence, uncomplicated Status: Acute (3) Chronic pain Code(s): G89.29 - Other chronic pain Status: Acute - Plan Plan: 09/28/2018: Fair response to treatment, the patient's alcohol withdrawal symptoms have been well managed and he is reporting improvements in mood and continued remission of suicidal ideations. He is tolerated the start of Cymbalta for treatment of mood as well as chronic pain. The patient has been symptom-free for his alcohol withdrawal for less than 24 hours therefore continued inpatient observation and treatment recommended. -Continue inpatient stabilization and treatment. Increase Cymbalta to 60 mg/day. Discharge planning: Patient will need referral for outpatient mental health to include substance use treatment. Anticipate discharge tomorrow if withdrawal symptoms in remission. Justification for Continued Inpatient Stay: Patient remains an elevated risk for self-harm and will require further inpatient stabilization and preparation of a safe discharge plan. Moving patient to a less restrictive environment at this time may result in decompensation. Request Healthcare Surrogate/Guardian Advocate?: No (1) Major depressive disorder Qualifiers: Major depression recurrence: single episode Major depression episode severity : severe Psychotic features: without psychotic features (3) Chronic pain Qualifiers: Chronic pain type: other chronic pain Qualified Code(s): G89.29 - Other chronic pain
[2018-09-28] MEDS: LORazepam 1 MG Tablet PO PRN (20:39)
[2018-09-29] MEDS: Duloxetine 60 MG DR Capsule PO SCH (08:54)
[2018-09-29] MEDS: Umeclindinium 62.5 MCG/Vilanterol 25 MCG Inhaler INH SCH (08:55)
[2018-09-29] MEDS: Gabapentin 300 MG Capsule PO SCH ×3 (08:56→17:26)
[2018-09-29] MEDS: LORazepam 1 MG Tablet PO PRN ×2 (08:58→20:31)
[2018-09-29] MEDS: Lidocaine 5% Patch T-DERMAL SCH (09:01)
--- NOTE | 2018-09-29 16:24 | P.PNPSY ---
Subjective Chief Complaint: Depression with suicidal threats Remarks: Patient seen for follow-up, chart reviewed, patient discussed with nursing staff ; we reviewed the patient's mood, thoughts, and behaviors from overnight and this morning. Nurse reports that the patient has been out in the milieu trying to socialize with his peers. He continues to minimize his withdrawal symptoms but does admit to anxiety about the uncertainty of his future. Patient was treated with Ativan per the [employer] protocol and received 7 mg throughout the 24- hour period on 1217. Patient required dose of Ativan 2 mg this morning due to complaints of anxiety and elevations to his seat. Patient was seen prior to lunch to be sitting calmly and quietly in the day room. Patient continues to deny homicidal or suicidal ideations. Patient expressed a desire to be discharged home today but after we discussed the risks benefits side effects and alternative treatments for his mood pain and alcohol withdrawal he agrees to at least 1 more day of treatment inpatient. He denies any symptoms from the recent increase of Cymbalta. Mental Status Examination Appearance: Disheveled Consciousness: Alert Orientation: x4 Motor Activity: Normal gait Speech: Unremarkable Language: Adequate Fund of Knowledge: Adequate Attention and Concentration: Adequate Memory: Unremarkable Mood: Irritable Affect: Irritable, Blunt Thought Process & Associations: Intact Thought Content: Appropriate Hallucination Type: None Delusion Type: None Suicidal Ideation: No Suicidal Plan: No Suicidal Intention: No Homicidal Ideation: No Homicidal Plan: No Homicidal Intention: No Insight: Poor Judgment: Impulsive Assessment and Plan - Assessment (1) Major depressive disorder Code(s): F32.9 - Major depressive disorder, single episode, unspecified Status : Acute (2) Alcohol dependency Code(s): F10.20 - Alcohol dependence, uncomplicated Status: Acute (3) Chronic pain Code(s): G89.29 - Other chronic pain Status: Acute - Plan Plan: 09/28/2018: Fair response to treatment, the patient's alcohol withdrawal symptoms have been well managed and he is reporting improvements in mood and continued remission of suicidal ideations. He is tolerated the start of Cymbalta for treatment of mood as well as chronic pain. The patient has been symptom-free for his alcohol withdrawal for less than 24 hours therefore continued inpatient observation and treatment recommended. -Continue inpatient stabilization and treatment. Increase Cymbalta to 60 mg/day. Discharge planning: Patient will need referral for outpatient mental health to include substance use treatment. Anticipate discharge tomorrow if withdrawal symptoms in remission. 09/29/2018: Continue inpatient stabilization and treatment of the patient's depression with alcohol withdrawal. Continue treatment of alcohol withdrawal with the [employer] protocol using Ativan 1- 2 mg as needed. Anticipate daily dose to decrease from the 7 mg that was given yesterday. Continue Cymbalta 60 mg a day for treatment of depression and anxiety and pain. Continue gabapentin 3 mg 3 times a day for treatment of chronic pain as well as alcohol withdrawal. Discharge planning: Anticipate the patient will be stable for discharge tomorrow and will require follow-up appointments with [facility] to address psychiatric needs as well as substance use treatment. Justification for Continued Inpatient Stay: Patient remains an elevated risk for self-harm and will require further inpatient stabilization and preparation of a safe discharge plan. Moving patient to a less restrictive environment at this time may result in decompensation. Request Healthcare Surrogate/Guardian Advocate?: No (1) Major depressive disorder Qualifiers: Major depression recurrence: single episode Major depression episode severity : severe Psychotic features: without psychotic features (3) Chronic pain Qualifiers: Chronic pain type: other chronic pain Qualified Code(s): G89.29 - Other chronic pain
[2018-09-29 18:26] VITALS: PULSE 73; RESP 16; O2SAT 99
[2018-09-30] MEDS: traZODone 50 MG Tablet PO PRN (02:18)
[2018-09-30] MEDS: Ibuprofen 600 MG Tablet PO PRN (02:18)
[2018-09-30 05:16] VITALS: BP 110/77; TEMP 97.9
[2018-09-30] MEDS: Lidocaine 5% Patch T-DERMAL SCH (08:44)
[2018-09-30] MEDS: Duloxetine 60 MG DR Capsule PO SCH (08:44)
[2018-09-30] MEDS: Gabapentin 300 MG Capsule PO SCH ×2 (08:44→13:28)
[2018-09-30] MEDS: Umeclindinium 62.5 MCG/Vilanterol 25 MCG Inhaler INH SCH (08:45)
[2018-09-30] MEDS ORDERED: Lisinopril 10 MG Tablet PO SCH (09:00)
--- NOTE | 2018-09-30 11:20 | P.DSPSY ---
Psychiatry Discharge Summary Inpatient Psychiatric care?: Yes Advance Directives: No Mental Health Advance Directive: No Health Care Proxy: No - Admission Admission Date: September 25, 2018 09:22 - Admission Diagnosis (1) Major depressive disorder Code(s): F32.9 - Major depressive disorder, single episode, unspecified (2) Alcohol dependency Code(s): F10.20 - Alcohol dependence, uncomplicated (3) Chronic pain Code(s): G89.29 - Other chronic pain Brief History: The patient is a 68-year-old male who is brought to the emergency room under law enforcement officers Jaffe act order. According to the Jaffe act report, the patient told the attorney lawyer that he was "FUBAR" and did not want to be here anymore. On presentation to the emergency room, the patient admits to being hopeless and ambivalent about living but denies a plan to end his life. He endorsed multiple stressors including chronic pain without satisfactory treatment since he lost access to his [employer] approximately 3-4 months ago. Additionally, the patient reports grief and loss from losing a friend to stomach cancer 2 months ago. He admits to worsening depressed mood over the last 2 months but on the day of admission he reports "I was talking crazy and my brother took it the wrong way I do not want to ...the thought really scares me." As for his depression, the patient denies consistently depressed mood for more than 2 weeks prior to 2 months ago but since his friend 2 months ago he has been feeling down and depressed daily. He also admits to "fitful sleep", decreased interest, increased feelings of hopelessness, decreased energy, decreased concentration, and decreased appetite. He denies having thoughts of suicide previous to the day of admission. As for anxiety symptoms, the patient denies any history of chronic worries or anxiety attacks. As for psychosis, the patient denies any history of auditory or visual hallucinations. He denies any history of paranoid delusions. Past psychiatric history: Past Diagnoses: None reported Hospitalizations: Patient admits to being Jaffe acted 10 years ago reportedly for answering yes on a suicide screener. He reports being discharged the next day. Suicidal behavior: He denies Past psychotropic medication trials: Denies Outpatient MH treatment: Denies Substance Use Treatment: Denies Abuse/assault history: Denies Family psychiatric history: He denies any history of mental illness or suicides in his family. Psychosocial history: He was born and raised in [place]. He was raised by both parents and had 7 sisters and one brother, he was the fourth child out of 9. The patient graduate high school on time and then moved to [facility] where he attended [employer] for couple years but then left to work full- time. 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 The patient reports that he was and once but has no children. He is currently living in a travel trailer with friends. He does have access to firearms. As for his legal history, he admits to being arrested as a teen for racing cars and then his early 19 for marijuana possession but no history of custodial time. Substance Use history: Tobacco use: One pack per day for 50 years Alcohol use: He reports maintaining 5 years of sobriety prior to 3-4 weeks ago when he reportedly relapsed on alcohol use in an effort to treat his pain. He admits to drinking 12 beers per day leading up to his admission. 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 Cannabis use: None since his early 20s Stimulant use: He denies Opiate use: The patient denies misuse of prescription or illicit opiate drugs. Prescription drug abuse: Patient denies. Tobacco Use In Past 30 Days: Yes How Often Do You Have a Drink Containing Alcohol: 4 or more times a week Hospital Course: Initial assessment and plan: Patient is a 68-year-old male with history of alcohol dependence who was admitted to psychiatry under a law enforcement order a Jaffe act after he threatened suicide with his brother. Patient admits to worsening depressed mood over the last few months in association with severe psychosocial stressors as well as chronic pain and a relapse of his alcohol dependency. The patient admits to being in active withdrawal from alcohol as was observed from his significant tremulousness but he remains apprehensive about psychiatric treatment and is now denying any suicidality. The patient is unreliable in his current mental state therefore he will be continued on involuntary admission Jaffe act orders for further observation and treatment. The patient did demonstrate adequate capacity for making informed consent's for medical treatment and after discussion of risks benefits side effects and alternatives he expressed a desire to be started on treatments for depression as well as non- opioid treatments for pain. 1. Continue with admission to inpatient psychiatry at [facility]; involuntary/competent legal status. First opinion completed. 2. Routine unit precautions. 3. Comfort medications ordered for as needed treatment of constipation, heartburn, diarrhea, and mild pain. 4. Hydroxyzine 50mg po q6H prn anxiety/insomnia. 5. Alcohol withdrawal protocol with Ativan 1-2 mg as needed based on CIWA 6. Start Cymbalta 30 mg daily for treatment of depression and chronic pain. 7. Start gabapentin 300 mg 3 times a day for treatment of alcohol withdrawal as well as chronic pain. 8. Start Lidoderm patch apply 1 patch for 12 hours once per day for treatment of chronic back pain. 9. Patient will participate in the unit programming to include group therapies , milieu therapy and recreational therapies. 10. Discharge planning: Patient will require consideration of referrals for substance use treatment to include medications as well as recovery programs. Psychotropic medications were adjusted; Cymbalta was titrated to 60 mg a day for a therapeutic dose for depression and possible help with his chronic pain. The patient reported improved control of his pain since start of gabapentin and Lidoderm patches. He was started on trazodone 50 mg's at bedtime as needed for insomnia and he reports good efficacy. His blood pressure remained elevated at times and he was restarted on his outpatient treatment with lisinopril 10 mg/ day with good effect. The patient continued to demonstrate symptoms of alcohol withdrawal through hospital day 5; by hospital day 6 there was a good response to treatment noted by nursing and provider observations, and the patient reported improvements in mood, anxiety, and there was no evidence of any suicidality or homicidality at time of discharge and no signs of alcohol withdrawal. Psychiatric follow-up as well as substance use outpatient treatment was arranged by counselor. The patient is not an appropriate candidate for Antabuse or review due to his medical conditions. The patient is also to follow up with primary care. I have counseled the patient to abstain from substances of abuse including cannabis and have counseled patient to return to the psychiatric emergency room for any concerning symptoms as part of a general safety plan. - Discharge Discharge Date: 09/30/18 Discharge Disposition: Home - Discharge Instructions Discharge Diet: Regular Diet Activities You Can Perform: Regular- No Restrictions - Discharge Time > 30 minutes Mental Status Examination Appearance: Appropriate Consciousness: Alert Orientation: x4 Motor Activity: Normal gait Speech: Unremarkable Language: Adequate Fund of Knowledge: Adequate Attention and Concentration: Adequate Memory: Unremarkable Mood: Good Affect: Euthymic Thought Process & Associations: Intact Thought Content: Appropriate Hallucination Type: None Delusion Type: None Suicidal Ideation: No Suicidal Plan: No Suicidal Intention: No Homicidal Ideation: No Homicidal Plan: No Homicidal Intention: No Insight: Fair Judgment: Impulsive Discharge/Advance Care Plan - Results Vital Signs: Last Vital Signs Temp 97.9 F 09/30/18 05:16 Pulse 73 09/30/18 05:16 Resp 16 09/30/18 05:16 BP 110/77 09/30/18 05:16 Pulse Ox 99 09/29/18 18:00 Lab Results: Laboratory Results Hemoglobin A1c 4.9 % (4.3-6.0) 09/26/18 10:33 Triglycerides 123 mg/dL (42-150) 09/26/18 10:53 Cholesterol 195 mg/dL (120-200) 09/26/18 10:53 LDL Cholesterol, Calc 51 mg/dL (0-99) 09/26/18 10:53 HDL Cholesterol 119.3 mg/dL (40.0-60.0) H 09/26/18 10:53 TSH 0.508 uIU/mL (0.358-3.740) 09/24/18 14:37 Summary of Procedures: None ordered Imaging: ITS Impressions Chest X-Ray 09/24/18 15:21 CONCLUSION: No acute intrathoracic disease. Pending Results: None - Medications Number of antipsychotic medications at discharge: 0 - Discharge Care Plan Goals to Promote Your Health: * To prevent worsening of your condition and complications * To maintain your health at the optimal level Directions to Meet Your Goals: Take your medications as prescribed Follow your dietary instruction Follow activity as directed Keep your appointments as scheduled Take your immunizations and boosters as scheduled If your symptoms worsen call your PCP, if no PCP go to Urgent Care Center or Emergency Room For 05/05 questions related to your inpatient stay or results of tests pending at discharge, please contact Dr. Jason Machado MD at Smoking is Dangerous to Your Health. Avoid second hand smoking (1) Major depressive disorder Qualifiers: Major depression recurrence: single episode Major depression episode severity : severe Psychotic features: without psychotic features (3) Chronic pain Qualifiers: Chronic pain type: other chronic pain Qualified Code(s): G89.29 - Other chronic pain
== END 2018-09-30 14:40 | disposition home or self-care (01) ==
LOC: NEPD 13:55 → NEDA 09-25 09:22 → H260 09-25 11:45
PROVIDERS: ADMIT Psychiatry & Neurology Psychiatry; ATTEND Psychiatry & Neurology Psychiatry